=== PATIENT | female | born 2000 | race Caucasian/White ===

== ENCOUNTER 2018-08-11 02:55 | Emergency (ER) | payer MEDICAID ==
--- NOTE | 2018-08-11 03:30 | EDPHY ---
H & P Stated Complaint: UTI symptoms since 0130 Time Seen by Provider: 08/11/18 03:30 HPI/ROS: HPI CHIEF COMPLAINT: Dysuria HISTORY OF PRESENT ILLNESS: Otherwise healthy 18-year-old female, presents emergency room with dysuria that started around 130 this morning. It is now 330 in the morning. She has urinary frequency and dysuria. She concerned about a urinary tract infection. She reports to me that last week she had urinary tract infection completed a course of antibiotics does not remember the name of the antibiotic. She states she felt better and then now has recurrence of symptoms. She denies any significant back pain, fever, vomiting, abdominal pain. Past Medical History: History of UTI. Past Surgical History: No recent surgical history Social History: Denies drugs alcohol tobacco. Family History: Noncontributory ROS REVIEW OF SYSTEMS: 10 Systems were reviewed and negative with the exception of the elements mentioned in the history of present illness. Exam Constitutional triage nursing summary reviewed, vital signs reviewed, awake/ alert. Eyes normal conjunctivae and sclera, EOMI, PERRLA. HENT normal inspection, atraumatic, moist mucus membranes, no epistaxis, neck supple/ no meningismus, no raccoon eyes. Respiratory clear to auscultation bilaterally, normal breath sounds, no respiratory distress, no wheezing. Cardiovascular rate normal, regular rhythm, no murmur, no edema, distal pulses normal. Gastrointestinal soft, non-tender, no rebound, no guarding, normal bowel sounds, no distension, no pulsatile mass. Genitourinary no CVA tenderness. Musculoskeletal no midline vertebral tenderness, full range of motion, no calf swelling, no tenderness of extremities, no meningismus, good pulses, neurovascularly intact. Skin pink, warm, & dry, no rash, skin atraumatic. Neurologic awake, alert and oriented x 3, AAOx3, moves all 4 extremities equally, motor intact, sensory intact, CN II-XII intact, normal cerebellar, normal vision, normal speech. Psychiatric normal mood/affect. Heme/Lymph/Immune no lymphadenopathy. Differential Diagnosis: Includes but is not limited to in a particular order UTI, cystitis, pyelonephritis Medical Decision Making: Plan for this patient check UA. Urine test. Re-evaluation: Urinalysis reviewed shows urinary tract infection Urine culture sent. Negative test. Started on Keflex here in emergency room Urine culture to follow. Source: Patient - Personal History LMP (Females 10-55): 1-7 Days Ago Current Tetanus/Diphtheria Vaccine: Yes - Medical/Surgical History Hx Asthma: No Hx Chronic Respiratory Disease: No Hx Diabetes: No Hx Cardiac Disease: No Hx Renal Disease: No Hx Cirrhosis: No Hx Alcoholism: No Hx HIV/AIDS: No Hx Splenectomy or Spleen Trauma: No Other PMH: denies - Social History Smoking Status: Never smoked Constitutional: Initial Vital Signs Temperature (C) 36.5 C 08/11/18 02:57 Heart Rate 80 08/11/18 02:57 Respiratory Rate 14 08/11/18 02:57 Blood Pressure 103/76 08/11/18 02:57 O2 Sat (%) 99 08/11/18 02:57 O2 Delivery Mode Room Air Allergies/Adverse Reactions: No Known Allergies Allergy (Unverified 08/11/18 02:59) Home Medications: Medication Instructions Recorded Cephalexin [Keflex] 500 mg PO Q6H #28 cap 08/11/18 Phenazopyridine HCl [Pyridium] 200 mg PO TID #15 tab 08/11/18 Medical Decision Making - Data Points Laboratory Results: 08/11/18 08/11/18 03:00 03:00 Urine Color KAREN Urine Appearance MODERATELY TURBID Urine pH 5.0 (5.0-7.5) Ur Specific [place] 1.025 (1.002-1.030) Urine Protein 2+ H (NEGATIVE) Urine Ketones NEGATIVE (NEGATIVE) Urine Blood 3+ H (NEGATIVE) Urine Nitrate POSITIVE H (NEGATIVE) Urine Bilirubin NEGATIVE (NEGATIVE) Urine Urobilinogen 2.0 EU H EU (0.2-1.0) Ur Leukocyte Esterase 2+ H (NEGATIVE) Urine RBC 50-182 /hpf H /hpf (0-3) Urine WBC 50-182 /hpf H /hpf (0-3) Ur Epithelial Cells TRACE /lpf /lpf (NONE-1+) Urine Mucus 1+ /lpf /lpf (NONE-1+) Urine Glucose NEGATIVE (NEGATIVE) Urine Test NEGATIVE Departure - Departure Disposition: Home, Routine, Self-Care Clinical Impression: Urinary tract infection Condition: Good Instructions: Urinary Tract Infection in Women (ED) Additional Instructions: 1. Make sure to drink lots of fluids stay well-hydrated 2. Take your antibiotics as prescribed 3. Return to the emergency room if develops worsening symptoms includes worsening abdominal pain, fever, vomiting Referrals: NONE *PRIMARY CARE P,. [Primary Care Provider] - As per Instructions [facility],. [Clinic] - As per Instructions Prescriptions: Cephalexin [Keflex] 500 mg PO Q6H #28 cap Phenazopyridine HCl [Pyridium] 200 mg PO TID #15 tab
[2018-08-11] MEDS ORDERED: CEPHALEXIN 500MG PREPACK#4 BTL TAKEHOME ONE (03:53)
[2018-08-11] MEDS ORDERED: CEPHALEXIN 500 MG CAP PO ONE (03:53)
[2018-08-11] MEDS ORDERED: PHENAZOPYRIDINE HCL 200 MG TAB PO ONE (03:54)
[2018-08-11 04:11] VITALS: BP 105/78
== END 2018-08-11 04:10 | disposition home or self-care (01) ==
DX: N39.0 Urinary tract infection, site not specified (principal)